=== PATIENT | female | born 1955 | race African-American/Black ===

== ENCOUNTER 2022-06-04 13:55 | Inpatient (IN) | payer MEDICARE, MEDICAID ==
[~2022-06-04] VITALS: Ht 165.1 cm; Wt 83.0 kg
[2022-06-04 14:56] LABS: HEMATOCRIT. 24.7 % (36.0-48.0); HEMOGLOBIN. 8.4 g/dL (12.0-16.0); MEAN CORPUSCULAR HEMOGLOBIN 29.1 pg (28.0-32.0); MEAN CORPUSCULAR VOLUME 85.9 fL (81.0-99.0); MEAN PLATELET VOLUME 9.8 fl (7.4-10.4); PLATELET 164 x1000/uL (130-400); RED BLOOD CELL COUNT 2.87 mill/uL (4.2-5.4); RED CELL DISTRIBUTION WIDTH 15.9 % (11.6-14.6)
[2022-06-04 15:16] LABS: CHLORIDE 95 mEq/L (98-107)
[2022-06-04] MEDS ORDERED: DEXTROSE 50% WATER 50ML SYRINGE IV ONE (17:30)
[2022-06-04 18:14] LABS: PLATELET ESTIMATE NORMAL
[2022-06-04 21:19] LABS: CLARITY URINE CLEAR (CLEAR); COLOR URINE YELLOW (YELLOW); KETONES URINE NEGATIVE (NEGATIVE); LEUKOCYTE ESTERASE URINE NEGATIVE (NEGATIVE); NITRITE URINE NEGATIVE (NEGATIVE); OCCULT BLOOD URINE NEGATIVE (NEGATIVE); PH URINE >=9.0 (4.5-8.0); PROTEIN URINE 3+ (NEGATIVE); SPECIFIC GRAVITY URINE 1.014 (1.005-1.030); UROBILINOGEN URINE 0.2 E.U./dL (0.2-1.0)
[2022-06-04] MEDS: DEXT 10% WATER 1,000 ML IV SCH (22:35)
[2022-06-04] MEDS: AMLODIPINE 5MG TABLET PO SCH (22:44)
[2022-06-05] VITALS (13 sets, daily range): BP systolic 147–186; BP diastolic 70–90
[2022-06-05] MEDS ORDERED: ACETAMINOPHEN 325MG TABLET PO PRN
[2022-06-05] MEDS ORDERED: ONDANSETRON HCL 4MG/2ML INJ IV PRN
[2022-06-05 05:49] LABS: BASOPHILS % 0.2 % (0.0-2.0); EOSINOPHILS % 0.6 % (0.0-5.0); HEMATOCRIT. 22.6 % (36.0-48.0); HEMOGLOBIN. 7.6 g/dL (12.0-16.0); LYMPHOCYTES % 9.9 % (20.0-50.0); MEAN CORPUSCULAR HEMOGLOBIN 28.9 pg (28.0-32.0); MEAN CORPUSCULAR VOLUME 85.5 fL (81.0-99.0); MEAN PLATELET VOLUME 9.7 fl (7.4-10.4); NEUTROPHILS % 81.3 % (40.0-76.0); PLATELET 148 x1000/uL (130-400); RED BLOOD CELL COUNT 2.64 mill/uL (4.2-5.4); RED CELL DISTRIBUTION WIDTH 15.5 % (11.6-14.6)
[2022-06-05] MEDS: DEXT 10% WATER 1,000 ML IV SCH ×2 (06:49→18:02)
[2022-06-05] MEDS: AMLODIPINE 5MG TABLET PO SCH (08:11)
[2022-06-05] MEDS ORDERED: ENOXAPARIN 40MG/0.4ML SYR SUBCUT SCH (11:30)
[2022-06-05] MEDS ORDERED: IPRATROPIUM/ALBUTEROL 0.5-3(2.5)MG/3ML NEB NEB PRN (11:30)
[2022-06-05] MEDS ORDERED: HYDROCODONE/ACETAMINOPHEN 5/325MG TABLET PO PRN (11:30)
[2022-06-05] MEDS ORDERED: CLONIDINE 0.1MG TABLET PO PRN (11:30)
[2022-06-05] MEDS ORDERED: NALOXONE HCL 0.4MG/ML VIAL IV PRN (11:45)
[2022-06-05] MEDS: ENOXAPARIN 30MG/0.3ML SYR SUBCUT SCH (12:12)
[2022-06-05 14:01] LABS: *AMPHETAMINES SCREEN URINE NEGATIVE (NEGATIVE); *BARBITURATES SCREEN URINE NEGATIVE (NEGATIVE); *BENZODIAZEPINES SCREEN URINE NEGATIVE (NEGATIVE); *COCAINE SCREEN URINE NEGATIVE (NEGATIVE); CANNABINOID URINE SCREEN NEGATIVE (NEGATIVE); METHADONE URINE SCREEN NEGATIVE (NEGATIVE); OPIATES URINE SCREEN NEGATIVE (NEGATIVE); PHENCYCLIDINE URINE SCREEN NEGATIVE (NEGATIVE)
[2022-06-05] MEDS ORDERED: DEXT 5%/0.9% NACL 1,000 ML IV SCH (16:00)
[2022-06-05 19:29] LABS: HEPATITIS B SURFACE ANTIGEN NEGATIVE
[2022-06-05] MEDS ORDERED: DEXTROSE 50% WATER 50ML SYRINGE IV PRN (19:30)
[2022-06-05] MEDS ORDERED: BLOOD SUGAR DIAGNOSTIC STRIP TEST SCH (20:00)
[2022-06-05] MEDS ORDERED: EPOETIN ALFA-EPBX 4,000 UNIT/ML VIAL SUBCUT SCH (21:00)
[2022-06-06] VITALS (7 sets, daily range): BP systolic 169–182; BP diastolic 68–87
[2022-06-06] MEDS: BLOOD SUGAR DIAGNOSTIC STRIP TEST SCH ×3 (04:00→08:00)
[2022-06-06 07:12] LABS: BASOPHILS % 0.5 % (0.0-2.0); EOSINOPHILS % 1.1 % (0.0-5.0); HEMATOCRIT. 22.9 % (36.0-48.0); HEMOGLOBIN. 7.8 g/dL (12.0-16.0); LYMPHOCYTES % 10.1 % (20.0-50.0); MEAN CORPUSCULAR HEMOGLOBIN 28.7 pg (28.0-32.0); MEAN CORPUSCULAR VOLUME 84.8 fL (81.0-99.0); MEAN PLATELET VOLUME 9.6 fl (7.4-10.4); MONOCYTES % 9.4 % (2.0-8.0); NEUTROPHILS % 78.9 % (40.0-76.0); PLATELET 160 x1000/uL (130-400); RED CELL DISTRIBUTION WIDTH 15.5 % (11.6-14.6)
[2022-06-06] MEDS: ENOXAPARIN 30MG/0.3ML SYR SUBCUT SCH (09:35)
[2022-06-06] MEDS: AMLODIPINE 5MG TABLET PO SCH (09:35)
[2022-06-18] MEDS ORDERED: GLUC3SPR NS (12:40)
== END 2022-06-06 11:50 | disposition home or self-care (01) | DRG 420 ==
LOC: ER 13:55 → MICUSO 17:28 → EDBEDREQTM 17:34 → EDBEDREQ 17:34 → EDBEDREQSVC 17:34 → 5EST 06-05 14:14
PROVIDERS: ADMIT Internal Medicine; ATTEND Internal Medicine
PROC: 5A1D70Z Performance of Urinary Filtration, Intermittent, Less than 6 Hours Per Day (ICD-10-PCS; principal; 2022-06-05)
DX: E11.649 Type 2 diabetes mellitus with hypoglycemia without coma (principal); I12.0 Hypertensive chronic kidney disease with stage 5 chronic kidney disease or end stage renal disease; C22.0 Liver cell carcinoma; E11.22 Type 2 diabetes mellitus with diabetic chronic kidney disease; N18.6 End stage renal disease; D64.9 Anemia, unspecified; E66.9 Obesity, unspecified; I25.10 Atherosclerotic heart disease of native coronary artery without angina pectoris; M19.90 Unspecified osteoarthritis, unspecified site; J45.909 Unspecified asthma, uncomplicated; Z96.659 Presence of unspecified artificial knee joint; Z68.30 Body mass index [BMI] 30.0-30.9, adult; Z85.05 Personal history of malignant neoplasm of liver; Z99.2 Dependence on renal dialysis
CPT/HCPCS: 36415; 80048; 80053; 80061; 80305; 81003; 82105; 82962; 85025; 86705; 86709; 86803; 87340; 90935; 99291; J0885; J1650

== ENCOUNTER 2022-06-16 19:56 | Inpatient (IN) | payer MEDICARE, MEDICAID ==
[~2022-06-16] VITALS: Ht 165.1 cm; Wt 81.7 kg
[2022-06-16] MEDS ORDERED: DEXTROSE 50% WATER 50ML SYRINGE IV ONE ×3 (20:07→22:42)
[2022-06-16] MEDS ORDERED: DEXTROSE 10% WATER 500 ML IV ONE (21:15)
[2022-06-16 21:32] LABS: HEMATOCRIT. 22.3 % (36.0-48.0); HEMOGLOBIN. 7.6 g/dL (12.0-16.0); MEAN CORPUSCULAR HEMOGLOBIN 28.8 pg (28.0-32.0); MEAN CORPUSCULAR VOLUME 84.2 fL (81.0-99.0); MEAN PLATELET VOLUME 8.5 fl (7.4-10.4); PLATELET 217 x1000/uL (130-400); RED BLOOD CELL COUNT 2.65 mill/uL (4.2-5.4); RED CELL DISTRIBUTION WIDTH 16.2 % (11.6-14.6)
[2022-06-16 21:41] LABS: CHLORIDE 95 mEq/L (98-107)
[2022-06-16] MEDS ORDERED: HYDRALAZINE 20MG/ML VIAL IV ONE (22:30)
[2022-06-16] MEDS ORDERED: METOCLOPRAMIDE HCL 10MG/2ML VIAL IV ONE (22:30)
[2022-06-16] MEDS ORDERED: MAGNESIUM/ALUMINUM HYDROXIDE/SIMETHICONE 30ML UDC PO PRN (23:45)
[2022-06-16] MEDS ORDERED: HYDROCODONE/ACETAMINOPHEN 5/325MG TABLET PO PRN (23:45)
[2022-06-16] MEDS ORDERED: DOCUSATE SODIUM 100MG CAPSULE PO PRN (23:45)
[2022-06-16] MEDS ORDERED: DIPHENHYDRAMINE 50MG/ML VIAL IV PRN (23:45)
[2022-06-16] MEDS ORDERED: IPRATROPIUM/ALBUTEROL 0.5-3(2.5)MG/3ML NEB HHN PRN (23:45)
[2022-06-16] MEDS ORDERED: ACETAMINOPHEN 325MG TABLET PO PRN ×2 (23:45)
[2022-06-16] MEDS ORDERED: CLONIDINE 0.1MG TABLET PO PRN (23:45)
[2022-06-16] MEDS ORDERED: GUAIFENESIN 200MG/10ML SUGAR FREE UDC PO PRN (23:45)
[2022-06-16] MEDS ORDERED: DEXTROSE 5% WATER 1,000 ML IV SCH (23:45)
[2022-06-16] MEDS ORDERED: ONDANSETRON HCL 4MG/2ML INJ IV PRN (23:45)
[2022-06-17] VITALS (20 sets, daily range): BP systolic 19–169; BP diastolic 54–81
[2022-06-17 00:06] LABS: PLATELET ESTIMATE NORMAL
[2022-06-17] MEDS ORDERED: DEXTROSE 50% WATER 50ML SYRINGE IV ONE (08:09)
[2022-06-17] MEDS: INSULIN LISPRO 100 UNITS/ML SUBCUT SCH ×4 (08:20→21:00)
[2022-06-17] MEDS ORDERED: DIPHENHYDRAMINE 50MG/ML VIAL IV PRN (08:45)
[2022-06-17] MEDS: PANTOPRAZOLE SODIUM 40 MG/VIAL IV SCH (09:00)
[2022-06-17] MEDS: FUROSEMIDE 40MG/4ML VIAL IVP SCH ×2 (09:15→17:00)
[2022-06-17] MEDS: BLOOD SUGAR DIAGNOSTIC STRIP TEST SCH ×4 (09:16→21:00)
[2022-06-17] MEDS: AMLODIPINE 5MG TABLET PO SCH (09:16)
[2022-06-17 11:22] LABS: HEMATOCRIT. 23.5 % (36.0-48.0); MEAN CORPUSCULAR HEMOGLOBIN 28.5 pg (28.0-32.0); MEAN CORPUSCULAR VOLUME 83.6 fL (81.0-99.0); MEAN PLATELET VOLUME 8.8 fl (7.4-10.4); PLATELET 215 x1000/uL (130-400); RED BLOOD CELL COUNT 2.81 mill/uL (4.2-5.4); RED CELL DISTRIBUTION WIDTH 16.1 % (11.6-14.6)
[2022-06-17] MEDS ORDERED: DEXT 10% WATER 1,000 ML IV SCH (13:45)
[2022-06-17 14:08] LABS: PLATELET ESTIMATE NORMAL
[2022-06-17 15:40] LABS: HEPATITIS B SURFACE ANTIGEN NEGATIVE
[2022-06-17] MEDS ORDERED: NALOXONE HCL 0.4MG/ML VIAL IV PRN (15:45)
[2022-06-17 16:13] LABS: CHLORIDE 93 mEq/L (98-107)
[2022-06-17 16:27] LABS: HDL CHOLESTEROL 73 mg/dL (40-59); LDL CHOLESTEROL 29 mg/dL (5-100); T4 FREE 1.56 ng/dL (0.76-1.46)
[2022-06-17] MEDS: DEXTROSE 50% WATER 50ML SYRINGE IV PRN ×2 (21:50→23:52)
[2022-06-18] VITALS (19 sets, daily range): BP systolic 137–168; BP diastolic 8–85
[2022-06-18] MEDS ORDERED: WATER IV SCH (01:30)
[2022-06-18] MEDS ORDERED: DEXT IV SCH (01:30)
[2022-06-18] MEDS ORDERED: DEXTROSE 50% IV SCH (01:30)
[2022-06-18] MEDS: BLOOD SUGAR DIAGNOSTIC STRIP TEST SCH ×6 (04:00→20:04)
[2022-06-18 07:10] LABS: BASOPHILS % 0.2 % (0.0-2.0); EOSINOPHILS % 1.1 % (0.0-5.0); HEMATOCRIT. 21.4 % (36.0-48.0); HEMOGLOBIN. 7.4 g/dL (12.0-16.0); LYMPHOCYTES % 9.8 % (20.0-50.0); MEAN CORPUSCULAR HEMOGLOBIN 28.6 pg (28.0-32.0); MEAN CORPUSCULAR VOLUME 82.6 fL (81.0-99.0); MEAN PLATELET VOLUME 9.5 fl (7.4-10.4); MONOCYTES % 10.3 % (2.0-8.0); NEUTROPHILS % 78.6 % (40.0-76.0); PLATELET 210 x1000/uL (130-400); RED BLOOD CELL COUNT 2.58 mill/uL (4.2-5.4); RED CELL DISTRIBUTION WIDTH 16.1 % (11.6-14.6)
[2022-06-18 07:55] LABS: CHLORIDE 91 mEq/L (98-107)
[2022-06-18] MEDS: PANTOPRAZOLE SODIUM 40 MG/VIAL IV SCH (08:34)
[2022-06-18] MEDS: AMLODIPINE 5MG TABLET PO SCH (08:34)
[2022-06-18] MEDS: FUROSEMIDE 40MG/4ML VIAL IVP SCH ×2 (08:34→17:34)
[2022-06-18] MEDS ORDERED: ISOS60TA76 PO (12:34)
[2022-06-18] MEDS ORDERED: ASPI-1406 PO (12:34)
[2022-06-18] MEDS ORDERED: AMLO10TA80 PO (12:34)
[2022-06-18] MEDS ORDERED: ATOR20TA65 PO (12:34)
[2022-06-18] MEDS ORDERED: MIRT45TA83 PO (12:34)
[2022-06-18] MEDS ORDERED: SEVE800T8 PO (12:34)
[2022-06-18] MEDS ORDERED: METO5TAB7 PO (12:34)
[2022-06-18] MEDS ORDERED: HYDR100T31 PO (12:34)
[2022-06-18] MEDS ORDERED: GLUC3SPR NS (12:40)
[2022-06-19 02:00] VITALS: BP 165/69
[2022-06-19 04:00] VITALS: BP 171/75
[2022-06-19] MEDS: BLOOD SUGAR DIAGNOSTIC STRIP TEST SCH ×3 (04:02→08:00)
[2022-06-19 05:37] VITALS: BP 154/62
[2022-06-19 07:00] LABS: BASOPHILS % 0.5 % (0.0-2.0); EOSINOPHILS % 2.5 % (0.0-5.0); HEMATOCRIT. 21.4 % (36.0-48.0); HEMOGLOBIN. 7.1 g/dL (12.0-16.0); LYMPHOCYTES % 10.4 % (20.0-50.0); MEAN CORPUSCULAR HEMOGLOBIN 27.8 pg (28.0-32.0); MEAN CORPUSCULAR VOLUME 83.4 fL (81.0-99.0); MEAN PLATELET VOLUME 9.2 fl (7.4-10.4); NEUTROPHILS % 75.6 % (40.0-76.0); PLATELET 219 x1000/uL (130-400); RED BLOOD CELL COUNT 2.56 mill/uL (4.2-5.4); RED CELL DISTRIBUTION WIDTH 15.5 % (11.6-14.6)
[2022-06-19 07:13] LABS: CHLORIDE 93 mEq/L (98-107)
[2022-06-19 08:00] VITALS: BP 152/68
[2022-06-19] MEDS ORDERED: FAMOTIDINE 20MG/2ML VIAL IV SCH (09:00)
[2022-06-19] MEDS: FUROSEMIDE 40MG/4ML VIAL IVP SCH (09:13)
[2022-06-19] MEDS: AMLODIPINE 5MG TABLET PO SCH (09:13)
[2022-06-19] MEDS ORDERED: GLUC3SPR NS (12:03)
[2022-06-19 12:43] VITALS: BP 152/62
[2022-06-19 13:06] LABS: C-PEPTIDE 9.2 ng/mL (1.1-4.4)
[2022-06-19] MEDS ORDERED: EPOETIN ALFA 10000UNITS/ML VIAL SUBCUT SCH (21:00)
[2022-06-20 13:07] LABS: C-PEPTIDE 5.1 ng/mL (1.1-4.4); INSULIN 3.5 uIU/mL (2.6-24.9)
[2022-06-21 13:06] LABS: PRO INSULIN 40.8 pmol/L (0.0-10.0)
[2022-06-21 13:06] LABS: PRO INSULIN 10.6 pmol/L (0.0-10.0)
== END 2022-06-19 13:05 | disposition home health service (06) | DRG 420 ==
LOC: ER 19:56 → MICUSO 22:32 → EDBEDREQ 22:33 → EDBEDREQSVC 22:35 → SUPCPDRO 22:54 → 5EST 06-17 03:13
PROVIDERS: ADMIT Internal Medicine; ATTEND Internal Medicine
PROC: 5A1D70Z Performance of Urinary Filtration, Intermittent, Less than 6 Hours Per Day (ICD-10-PCS; principal; 2022-06-17)
PROC: 5A1D70Z Performance of Urinary Filtration, Intermittent, Less than 6 Hours Per Day (ICD-10-PCS; 2022-06-18)
DX: E11.649 Type 2 diabetes mellitus with hypoglycemia without coma (principal); I50.33 Acute on chronic diastolic (congestive) heart failure; I31.39 Other pericardial effusion (noninflammatory); N18.6 End stage renal disease; E46 Unspecified protein-calorie malnutrition; D63.1 Anemia in chronic kidney disease; I13.2 Hypertensive heart and chronic kidney disease with heart failure and with stage 5 chronic kidney disease, or end stage renal disease; E11.22 Type 2 diabetes mellitus with diabetic chronic kidney disease; E11.65 Type 2 diabetes mellitus with hyperglycemia; Z20.822 Contact with and (suspected) exposure to COVID-19; E66.9 Obesity, unspecified; I25.10 Atherosclerotic heart disease of native coronary artery without angina pectoris; E78.5 Hyperlipidemia, unspecified; R74.01 Elevation of levels of liver transaminase levels; M10.9 Gout, unspecified; Z79.899 Other long term (current) drug therapy; Z68.30 Body mass index [BMI] 30.0-30.9, adult; Z79.4 Long term (current) use of insulin; Z99.2 Dependence on renal dialysis; Z87.891 Personal history of nicotine dependence; Z85.05 Personal history of malignant neoplasm of liver; Z81.1 Family history of alcohol abuse and dependence; Z92.21 Personal history of antineoplastic chemotherapy; Z92.3 Personal history of irradiation; Z63.72 Alcoholism and drug addiction in family; Z80.9 Family history of malignant neoplasm, unspecified; Z96.653 Presence of artificial knee joint, bilateral
CPT/HCPCS: 36415; 71045; 80048; 80053; 80061; 82105; 82533; 82947; 82962; 83036; 83525; 83880; 84206; 84439; 84443; 84481; 84681; 85025; 86337; 86705; 86709; 86803; 87340; 90935; 93005; 93306; 93970; 99285; C9113; J0360; J1940; J2765; J3490

== ENCOUNTER 2022-08-03 20:37 | Emergency (ER) | payer MEDICARE, MEDICAID ==
[~2022-08-03] VITALS: Ht 167.6 cm; Wt 69.0 kg
[~2022-08-03 20:37] MED LIST: AMLO10TA80 PO; ASPI-1406 PO; ATOR20TA65 PO; GLUC3SPR NS; HYDR-4001 PO; HYDR100T31 PO; ISOS60TA76 PO; METO5TAB7 PO; MIRT45TA83 PO; SEVE800T8 PO
[2022-08-03 22:47] LABS: BASOPHILS % 0.6 % (0.0-2.0); EOSINOPHILS % 4.5 % (0.0-5.0); HEMATOCRIT. 23.6 % (36.0-48.0); HEMOGLOBIN. 7.7 g/dL (12.0-16.0); LYMPHOCYTES % 14.4 % (20.0-50.0); MEAN CORPUSCULAR HEMOGLOBIN 26.5 pg (28.0-32.0); MEAN CORPUSCULAR VOLUME 80.9 fL (81.0-99.0); MEAN PLATELET VOLUME 8.5 fl (7.4-10.4); MONOCYTES % 12.6 % (2.0-8.0); NEUTROPHILS % 67.9 % (40.0-76.0); PLATELET 200 x1000/uL (130-400); RED BLOOD CELL COUNT 2.92 mill/uL (4.2-5.4)
[2022-08-03 22:55] LABS: CHLORIDE 100 mEq/L (98-107)
[2022-08-03 22:57] LABS: INR 1.1
[2022-08-03 23:41] LABS: CLARITY URINE CLEAR (CLEAR); COLOR URINE YELLOW (YELLOW); KETONES URINE NEGATIVE (NEGATIVE); LEUKOCYTE ESTERASE URINE NEGATIVE (NEGATIVE); NITRITE URINE NEGATIVE (NEGATIVE); OCCULT BLOOD URINE NEGATIVE (NEGATIVE); PROTEIN URINE 3+ (NEGATIVE); SPECIFIC GRAVITY URINE 1.015 (1.005-1.030); UROBILINOGEN URINE 0.2 E.U./dL (0.2-1.0)
[2022-08-04] MEDS ORDERED: PIPERACILLIN/TAZOBACTAM 3.375GM/50ML PREMIX IV NR (01:02)
[2022-08-04] MEDS ORDERED: VANCOMYCIN 1G PREMIX 200 ML IV STA (01:02)
[2022-08-04 06:00] VITALS: BP 149/73
== END 2022-08-04 06:12 | disposition left against medical advice (07) ==
LOC: ER 20:37 → CANBEDREQ 08-04 19:52
DX: E87.70 Fluid overload, unspecified (principal); J18.9 Pneumonia, unspecified organism; I12.0 Hypertensive chronic kidney disease with stage 5 chronic kidney disease or end stage renal disease; E11.22 Type 2 diabetes mellitus with diabetic chronic kidney disease; N18.6 End stage renal disease; Z99.2 Dependence on renal dialysis; F14.10 Cocaine abuse, uncomplicated; Z79.899 Other long term (current) drug therapy
CPT/HCPCS: 36415; 71045; 80053; 81003; 83880; 84484; 85025; 85610; 86850; 86900; 86901; 93005; 94660; 96365; 96366; 96375; 99291; J2543; J3370; Z7610

== ENCOUNTER 2022-08-07 14:43 | Inpatient (IN) | payer MEDICARE, MEDICAID ==
[~2022-08-07] VITALS: Ht 167.6 cm; Wt 69.9 kg
[2022-08-07 16:29] LABS: BASOPHILS % 0.6 % (0.0-2.0); EOSINOPHILS % 3.8 % (0.0-5.0); HEMATOCRIT. 27.1 % (36.0-48.0); HEMOGLOBIN. 8.8 g/dL (12.0-16.0); LYMPHOCYTES % 13.3 % (20.0-50.0); MEAN CORPUSCULAR HEMOGLOBIN 26.1 pg (28.0-32.0); MEAN CORPUSCULAR VOLUME 80.3 fL (81.0-99.0); MEAN PLATELET VOLUME 8.6 fl (7.4-10.4); MONOCYTES % 8.6 % (2.0-8.0); NEUTROPHILS % 73.7 % (40.0-76.0); PLATELET 260 x1000/uL (130-400); RED BLOOD CELL COUNT 3.37 mill/uL (4.2-5.4); RED CELL DISTRIBUTION WIDTH 18.1 % (11.6-14.6)
[2022-08-07 22:25] LABS: CHLORIDE 99 mEq/L (98-107)
[2022-08-08 04:35] VITALS: BP 170/80
[2022-08-08 08:09] VITALS: BP 162/71
[2022-08-08] MEDS ORDERED: ONDANSETRON HCL 4MG/2ML INJ IV PRN (09:30)
[2022-08-08] MEDS ORDERED: DIPHENHYDRAMINE 50MG/ML VIAL IV PRN (09:30)
[2022-08-08] MEDS ORDERED: IPRATROPIUM/ALBUTEROL 0.5-3(2.5)MG/3ML NEB HHN PRN (09:30)
[2022-08-08] MEDS ORDERED: ACETAMINOPHEN 325MG TABLET PO PRN ×2 (09:30→11:45)
[2022-08-08] MEDS: NICOTINE 7MG PATCH TD SCH (11:30)
[2022-08-08 12:16] VITALS: BP 167/67
[2022-08-08 13:47] LABS: HEPATITIS B SURFACE ANTIGEN NEGATIVE
[2022-08-08 15:52] VITALS: BP 171/69
[2022-08-08 17:10] LABS: INR 1.1; PROTHROMBIN TIME 11.7 sec (9.6-11.0)
[2022-08-08] MEDS ORDERED: NALOXONE HCL 0.4MG/ML VIAL IV PRN (17:15)
[2022-08-08] MEDS: MORPHINE SULFATE 2 MG/ML CPJ (NOT FOR IM USE) IV PRN (18:22)
[2022-08-08 20:00] VITALS: BP 159/61
[2022-08-08] MEDS: IPRATROPIUM/ALBUTEROL 0.5-3(2.5)MG/3ML NEB HHN SCH (20:26)
[2022-08-08] MEDS: SODIUM CHLORIDE 3% FOR INH 4ML UD NEB INH SCH (20:27)
[2022-08-08] MEDS ORDERED: CHLORHEXIDINE GLUCONATE 4% EXTERNAL USE TOP SCH (21:00)
[2022-08-08] MEDS ORDERED: DIPHENHYDRAMINE 25MG CAPSULE PO PRN (21:00)
[2022-08-08] MEDS ORDERED: BISACODYL 10MG SUPP PR PRN (21:00)
[2022-08-08] MEDS ORDERED: ASCORBIC ACID 500 MG TABLET PO SCH (21:00)
[2022-08-08] MEDS ORDERED: DOCUSATE SODIUM 100MG CAPSULE PO SCH (21:00)
[2022-08-08] MEDS ORDERED: IBUPROFEN 400MG TABLET PO PRN (21:45)
[2022-08-08] MEDS: ALLOPURINOL 300 MG TABLET PO SCH (21:53)
[2022-08-08] MEDS: CLONIDINE 0.1MG TABLET PO PRN (21:54)
[2022-08-09] VITALS (23 sets, daily range): BP systolic 124–169; BP diastolic 67–99
[2022-08-09] MEDS ORDERED: LR with VERAPAMIL, NTG, HEPARIN, SODIUM BICARBONATE (Soln) IV SCH ×10 (01:15→05:00)
[2022-08-09] MEDS: ACETYLCYSTEINE 100MG/ML 10% VIAL 4ML INH SCH ×3 (01:29→14:35)
[2022-08-09] MEDS: IPRATROPIUM/ALBUTEROL 0.5-3(2.5)MG/3ML NEB HHN SCH ×5 (01:29→21:36)
[2022-08-09] MEDS ORDERED: INSULIN REGULAR 100U/100ML PMX 100 ML IV NR (05:00)
[2022-08-09] MEDS ORDERED: PAPAVERINE HCL 180MG in SODIUM CHLORIDE 0.9% 24ML IV NR (05:00)
[2022-08-09] MEDS ORDERED: EPINEPHRINE 5 MG in DEXT 5% WATER 250 ML IV NR (05:00)
[2022-08-09] MEDS ORDERED: CEFAZOLIN 2,000 MG in DEXT 5% WATER 100 ML IV SCH (05:00)
[2022-08-09] MEDS ORDERED: NOREPINEPHRINE 8MG/250ML PMX 250 ML IV NR (05:00)
[2022-08-09] MEDS ORDERED: NICARDIPINE 40MG/200ML PREMIX 200 ML IV NR (05:00)
[2022-08-09] MEDS ORDERED: DOBUTAMINE 250MG PREMIX 250 ML IV NR (05:00)
[2022-08-09] MEDS ORDERED: [UNRECOGNIZED DRUG - OTHER] IV NR ×2 (05:00)
[2022-08-09] MEDS: ALLOPURINOL 300 MG TABLET PO SCH (05:43)
[2022-08-09 06:35] LABS: BASOPHILS % 0.8 % (0.0-2.0); EOSINOPHILS % 7.2 % (0.0-5.0); HEMATOCRIT. 24.2 % (36.0-48.0); LYMPHOCYTES % 18.8 % (20.0-50.0); MEAN CORPUSCULAR HEMOGLOBIN 26.6 pg (28.0-32.0); MEAN CORPUSCULAR VOLUME 80.6 fL (81.0-99.0); MEAN PLATELET VOLUME 8.7 fl (7.4-10.4); MONOCYTES % 9.8 % (2.0-8.0); NEUTROPHILS % 63.4 % (40.0-76.0); PLATELET 234 x1000/uL (130-400); RED CELL DISTRIBUTION WIDTH 17.7 % (11.6-14.6)
[2022-08-09] MEDS ORDERED: BUPIVACAINE HCL/PF 0.5% (5MG/ML) 10ML ONE (06:51)
[2022-08-09] MEDS ORDERED: POLYMYXIN B SULFATE 500000 UNITS/VIAL ONE (06:51)
[2022-08-09] MEDS ORDERED: BACITRACIN 15GM TUBE TOP ONE (06:52)
[2022-08-09 07:08] LABS: CHLORIDE 102 mEq/L (98-107)
[2022-08-09] MEDS ORDERED: FENTANYL CITRATE/PF 50MCG/ML 2ML VIAL ONE (07:56)
[2022-08-09] MEDS ORDERED: MIDAZOLAM HCL 2 MG/2 ML VIAL ONE (07:57)
[2022-08-09] MEDS ORDERED: VANCOMYCIN HCL 1 GM/VIAL ONE (07:59)
[2022-08-09] MEDS ORDERED: CEFAZOLIN SODIUM 1000MG/VIAL ONE (08:00)
[2022-08-09] MEDS ORDERED: PROPOFOL 200MG/20ML VIAL IV ONE (08:12)
[2022-08-09] MEDS: SODIUM CHLORIDE 3% FOR INH 4ML UD NEB INH SCH (08:25)
[2022-08-09] MEDS ORDERED: KETOROLAC 15MG/ML VIAL IV PRN (08:45)
[2022-08-09] MEDS ORDERED: ACETAMINOPHEN 325MG TABLET PO PRN (08:45)
[2022-08-09] MEDS ORDERED: ONDANSETRON HCL 4MG/2ML INJ IV PRN (08:45)
[2022-08-09] MEDS ORDERED: CEFAZOLIN 1000MG PREMIX 50 ML IV SCH ×2 (08:45→21:00)
[2022-08-09] MEDS ORDERED: ALBUMIN HUMAN 25GM/100ML (25%) IV PRN (08:45)
[2022-08-09] MEDS ORDERED: FAMOTIDINE 20MG/2ML VIAL IV SCH (09:00)
[2022-08-09] MEDS ORDERED: CHLORHEXIDINE GLUCONATE 4% EXTERNAL USE TOP SCH (09:00)
[2022-08-09 11:09] LABS: BG BASE EXCESS 4.4 mmol/L (-2.0-2.0); BG CARBOXYHEMOGLOBIN 0.6 % (0.5-1.5); BG DEOXYHEMOGLOBIN 9.9 % (0.0-5.0); BG FRACTION INSPIRED OXYGEN 28; BG HCO3 ACT 30.2 mmol/L (22.0-26.0); BG METHEMOGLOBIN 0.4 % (0.0-1.5); BG OXYHEMOGLOBIN 89.1 % (94.0-97.0); BG PCO2 51.1 mmHg (35.0-45.0); BG PH 7.389 (7.350-7.450); BG PO2 62.3 mmHg (75.0-100.0); BG SAMPLE SITE RIGHT BRACHIAL; BG TOTAL HEMOGLOBIN 9.8 g/dL (12.0-18.0); BG VENT MODE NASAL CANNULA
[2022-08-09] MEDS: MORPHINE SULFATE 2 MG/ML CPJ (NOT FOR IM USE) IV PRN ×2 (11:44→17:17)
[2022-08-09] MEDS: NICOTINE 7MG PATCH TD SCH (12:07)
[2022-08-09] MEDS: DOCUSATE SODIUM 100MG CAPSULE PO SCH (17:18)
[2022-08-09] MEDS: BACITRACIN 15GM TUBE TOP SCH (17:18)
[2022-08-09] MEDS: METOPROLOL TARTRATE 25MG TABLET PO SCH ×2 (17:18→21:07)
[2022-08-09] MEDS ORDERED: DOPAMINE 400MG/250ML PREMIX 250 ML IV NR (20:45)
[2022-08-10] VITALS (13 sets, daily range): BP systolic 125–155; BP diastolic 58–90
[2022-08-10] MEDS: ACETYLCYSTEINE 100MG/ML 10% VIAL 4ML INH SCH ×3 (01:40→17:17)
[2022-08-10] MEDS: IPRATROPIUM/ALBUTEROL 0.5-3(2.5)MG/3ML NEB HHN SCH ×6 (01:40→22:14)
[2022-08-10 07:48] LABS: PHOSPHORUS 5.4 mg/dL (2.5-4.9)
[2022-08-10 07:51] LABS: BASOPHILS % 0.9 % (0.0-2.0); EOSINOPHILS % 6.9 % (0.0-5.0); HEMATOCRIT. 25.8 % (36.0-48.0); HEMOGLOBIN. 8.5 g/dL (12.0-16.0); MEAN CORPUSCULAR HEMOGLOBIN 26.7 pg (28.0-32.0); MEAN CORPUSCULAR VOLUME 81.1 fL (81.0-99.0); MEAN PLATELET VOLUME 8.9 fl (7.4-10.4); MONOCYTES % 7.7 % (2.0-8.0); NEUTROPHILS % 71.5 % (40.0-76.0); PLATELET 286 x1000/uL (130-400); RED BLOOD CELL COUNT 3.18 mill/uL (4.2-5.4); RED CELL DISTRIBUTION WIDTH 17.8 % (11.6-14.6)
[2022-08-10] MEDS: SODIUM CHLORIDE 3% FOR INH 4ML UD NEB INH SCH ×2 (09:00→17:17)
[2022-08-10] MEDS ORDERED: FAMOTIDINE 20MG/2ML VIAL IV SCH (09:00)
[2022-08-10] MEDS: DOCUSATE SODIUM 100MG CAPSULE PO SCH ×2 (10:07→17:00)
[2022-08-10] MEDS: METOPROLOL TARTRATE 25MG TABLET PO SCH ×3 (10:07→18:27)
[2022-08-10] MEDS: NICOTINE 7MG PATCH TD SCH (10:07)
[2022-08-10] MEDS: FAMOTIDINE 20MG TABLET PO SCH (10:07)
[2022-08-10] MEDS: BACITRACIN 15GM TUBE TOP SCH ×2 (10:10→17:00)
[2022-08-10] MEDS: MORPHINE SULFATE 2 MG/ML CPJ (NOT FOR IM USE) IV PRN ×2 (13:23→23:42)
[2022-08-11] MEDS: IPRATROPIUM/ALBUTEROL 0.5-3(2.5)MG/3ML NEB HHN SCH ×5 (01:47→21:44)
[2022-08-11] MEDS: ACETYLCYSTEINE 100MG/ML 10% VIAL 4ML INH SCH ×3 (01:48→21:44)
[2022-08-11 05:34] LABS: BASOPHILS % 0.6 % (0.0-2.0); EOSINOPHILS % 9.8 % (0.0-5.0); HEMATOCRIT. 24.5 % (36.0-48.0); HEMOGLOBIN. 7.9 g/dL (12.0-16.0); LYMPHOCYTES % 16.1 % (20.0-50.0); MEAN CORPUSCULAR HEMOGLOBIN 26.4 pg (28.0-32.0); MEAN CORPUSCULAR VOLUME 81.4 fL (81.0-99.0); MEAN PLATELET VOLUME 9.4 fl (7.4-10.4); MONOCYTES % 6.3 % (2.0-8.0); NEUTROPHILS % 67.2 % (40.0-76.0); PLATELET 292 x1000/uL (130-400); RED BLOOD CELL COUNT 3.01 mill/uL (4.2-5.4); RED CELL DISTRIBUTION WIDTH 18.2 % (11.6-14.6)
[2022-08-11 05:57] VITALS: BP 159/71
[2022-08-11 06:09] LABS: PHOSPHORUS 5.8 mg/dL (2.5-4.9)
[2022-08-11 08:00] VITALS: BP 145/79
[2022-08-11] MEDS: DOCUSATE SODIUM 100MG CAPSULE PO SCH ×2 (09:00→17:00)
[2022-08-11] MEDS: NICOTINE 7MG PATCH TD SCH (09:26)
[2022-08-11] MEDS: MORPHINE SULFATE 2 MG/ML CPJ (NOT FOR IM USE) IV PRN (09:27)
[2022-08-11] MEDS: METOPROLOL TARTRATE 25MG TABLET PO SCH ×3 (09:27→17:09)
[2022-08-11] MEDS: BACITRACIN 15GM TUBE TOP SCH ×2 (09:30→17:09)
[2022-08-11] MEDS: SODIUM CHLORIDE 3% FOR INH 4ML UD NEB INH SCH (09:40)
[2022-08-11 12:00] VITALS: BP 157/79
[2022-08-11 16:00] VITALS: BP 166/83
[2022-08-11 20:00] VITALS: BP 169/74
[2022-08-11] MEDS: CLONIDINE 0.1MG TABLET PO PRN (20:47)
[2022-08-12] VITALS (10 sets, daily range): BP systolic 137–159; BP diastolic 63–104
[2022-08-12] MEDS: IPRATROPIUM/ALBUTEROL 0.5-3(2.5)MG/3ML NEB HHN SCH ×4 (01:36→12:00)
[2022-08-12 07:28] LABS: BASOPHILS % 0.5 % (0.0-2.0); EOSINOPHILS % 10.6 % (0.0-5.0); HEMOGLOBIN. 7.7 g/dL (12.0-16.0); LYMPHOCYTES % 14.5 % (20.0-50.0); MEAN CORPUSCULAR HEMOGLOBIN 26.9 pg (28.0-32.0); MEAN CORPUSCULAR VOLUME 80.8 fL (81.0-99.0); MEAN PLATELET VOLUME 9.2 fl (7.4-10.4); MONOCYTES % 5.9 % (2.0-8.0); NEUTROPHILS % 68.5 % (40.0-76.0); PLATELET 264 x1000/uL (130-400); RED BLOOD CELL COUNT 2.84 mill/uL (4.2-5.4); RED CELL DISTRIBUTION WIDTH 18.5 % (11.6-14.6)
[2022-08-12 07:53] LABS: PHOSPHORUS 6.6 mg/dL (2.5-4.9)
[2022-08-12] MEDS: FAMOTIDINE 20MG TABLET PO SCH (08:50)
[2022-08-12] MEDS: DOCUSATE SODIUM 100MG CAPSULE PO SCH (08:50)
[2022-08-12] MEDS: BACITRACIN 15GM TUBE TOP SCH (08:51)
[2022-08-12] MEDS: METOPROLOL TARTRATE 25MG TABLET PO SCH (08:51)
[2022-08-12] MEDS: NICOTINE 7MG PATCH TD SCH (08:51)
[2022-08-12] MEDS ORDERED: METO25TA6 PO (09:54)
[2022-08-12] MEDS ORDERED: AMLO5TAB88 MT (09:54)
[2022-08-12 11:25] LABS: BG BASE EXCESS 2.7 mmol/L (-2.0-2.0); BG DEOXYHEMOGLOBIN 12.9 % (0.0-5.0); BG FRACTION INSPIRED OXYGEN 21; BG HCO3 ACT 28.2 mmol/L (22.0-26.0); BG OXYGEN SATURATION 86.8 % (92.0-98.5); BG OXYHEMOGLOBIN 85.1 % (94.0-97.0); BG PCO2 47.8 mmHg (35.0-45.0); BG PH 7.388 (7.350-7.450); BG PO2 53.8 mmHg (75.0-100.0); BG SAMPLE SITE RIGHT RADIAL; BG VENT MODE ROOM AIR
[2022-08-12] MEDS ORDERED: EPOETIN ALFA-EPBX 4,000 UNIT/ML VIAL SUBCUT SCH (21:00)
[2022-08-14 04:12] LABS: ANA IFA Negative (.)
== END 2022-08-12 15:30 | disposition left against medical advice (07) | DRG 793 ==
LOC: ER 14:43 → MICUSO 23:02 → EDBEDREQ 23:13 → EDBEDREQTM 23:13 → 7WST 08-08 04:29 → MICUNO 08-09 10:32 → 3WST 08-09 16:05
PROVIDERS: ADMIT Internal Medicine; ATTEND Internal Medicine
PROC: 0W9B3ZZ Drainage of Left Pleural Cavity, Percutaneous Approach (ICD-10-PCS; 2022-08-08)
PROC: 0W9D00Z Drainage of Pericardial Cavity with Drainage Device, Open Approach (ICD-10-PCS; principal; 2022-08-09)
PROC: 5A1D70Z Performance of Urinary Filtration, Intermittent, Less than 6 Hours Per Day (ICD-10-PCS; 2022-08-09)
PROC: 5A1D70Z Performance of Urinary Filtration, Intermittent, Less than 6 Hours Per Day (ICD-10-PCS; 2022-08-12)
DX: I97.621 Postprocedural hematoma of a circulatory system organ or structure following other procedure (principal); J96.00 Acute respiratory failure, unspecified whether with hypoxia or hypercapnia; I31.39 Other pericardial effusion (noninflammatory); I13.2 Hypertensive heart and chronic kidney disease with heart failure and with stage 5 chronic kidney disease, or end stage renal disease; N18.6 End stage renal disease; E44.0 Moderate protein-calorie malnutrition; E87.1 Hypo-osmolality and hyponatremia; K75.9 Inflammatory liver disease, unspecified; I47.1 Supraventricular tachycardia; J90 Pleural effusion, not elsewhere classified; S20.212A Contusion of left front wall of thorax, initial encounter; E11.22 Type 2 diabetes mellitus with diabetic chronic kidney disease; D50.9 Iron deficiency anemia, unspecified; E78.5 Hyperlipidemia, unspecified; F10.21 Alcohol dependence, in remission; F14.90 Cocaine use, unspecified, uncomplicated; F17.210 Nicotine dependence, cigarettes, uncomplicated; G89.4 Chronic pain syndrome; Z96.653 Presence of artificial knee joint, bilateral; I50.9 Heart failure, unspecified; M10.9 Gout, unspecified; I35.8 Other nonrheumatic aortic valve disorders; D72.829 Elevated white blood cell count, unspecified; J98.11 Atelectasis; X58.XXXA Exposure to other specified factors, initial encounter; Z20.822 Contact with and (suspected) exposure to COVID-19; Z88.5 Allergy status to narcotic agent; Z99.2 Dependence on renal dialysis; Z85.05 Personal history of malignant neoplasm of liver; Z82.49 Family history of ischemic heart disease and other diseases of the circulatory system; Z79.82 Long term (current) use of aspirin; Z79.899 Other long term (current) drug therapy; Y93.89 Activity, other specified; Y92.89 Other specified places as the place of occurrence of the external cause; Y99.8 Other external cause status
CPT/HCPCS: 32555; 36415; 36600; 71045; 71250; 80048; 80053; 82040; 82375; 82805; 82962; 83615; 83735; 83880; 84100; 85025; 86256; 86705; 86709; 86803; 86850; 86900; 87070; 87075; 87102; 87116; 87340; 87426; 88108; 90935; 93005; 93308; 93970; 94640; 97162; 99285; J0690; J0885; J1644; J1815; J2250; J2270; J2405; J2440; J2704; J3010; J3370; J3490; J7060; J7120; J7608

== ENCOUNTER 2022-11-22 14:43 | Inpatient (IN) | payer MEDICARE, MEDICAID ==
[~2022-11-22] VITALS: Ht 167.6 cm; Wt 70.0 kg
[~2022-11-22 14:43] MED LIST changes: +AMLO5TAB88 MT; +METO25TA6 PO
[2022-11-22 14:46] VITALS: O2SAT 98
[2022-11-22 14:50] VITALS: RESP 32
[2022-11-22 15:28] LABS: CHLORIDE 99 mEq/L (98-107); INDEX HEMOLYSI 3 (1-3); INDEX ICTERIC 1 (1-4); INDEX LIPEMIC 1 (1-3); POTASSIUM 4.1 mEq/L (3.5-5.1); SODIUM 138 mEq/L (136-145)
[2022-11-22 15:31] LABS: BASOPHILS % 0.9 % (0.0-2.0); DIFFERENTIAL COMMENT 0; HEMATOCRIT. 34.9 % (36.0-48.0); HEMOGLOBIN. 11.5 g/dL (12.0-16.0); LYMPHOCYTES % 20.8 % (20.0-50.0); MEAN CORPUSCULAR HEMOGLOBIN 25.2 pg (28.0-32.0); MEAN CORPUSCULAR HGB CONC 33.1 g/dL (31.0-37.0); MEAN CORPUSCULAR VOLUME 76.3 fL (81.0-99.0); MEAN PLATELET VOLUME 10.3 fl (7.4-10.4); MONOCYTES % 9.8 % (2.0-8.0); NEUTROPHILS % 67.5 % (40.0-76.0); PLATELET 172 x1000/uL (130-400); RED BLOOD CELL COUNT 4.58 mill/uL (4.2-5.4); RED CELL DISTRIBUTION WIDTH 20.6 % (11.6-14.6); WHITE BLOOD COUNT 6.8 x1000/uL (4.5-11.0)
[2022-11-22 15:37] LABS: ALANINE AMINOTRANSFERASE 48 IU/L (13-61); ALBUMIN 3.2 g/dL (3.4-5.0); ASPARTATE AMINOTRANSFERASE 52 IU/L (15-37); BILIRUBIN TOTAL 0.6 mg/dL (0.1-1.0); CALCIUM 8.9 mg/dL (8.5-10.1); CARBON DIOXIDE 31 mEq/L (21-32); GLUCOSE 122 mg/dL (70-105); PROTEIN TOTAL 7.4 g/dL (6.0-8.3); UREA NITROGEN BLOOD 22 mg/dL (7-21)
[2022-11-22 16:17] LABS: CREATININE 5.6 mg/dL (0.6-1.3); TROPONIN I HIGH SENSITIVITY 1137 ng/L (<54)
[2022-11-22 16:29] LABS: INR 1.2; PROTHROMBIN TIME 12.4 sec (9.6-11.0)
[2022-11-22] MEDS ORDERED: ASPIRIN 325MG TABLET PO ONE (16:45)
[2022-11-22 17:38] LABS: TROPONIN I HIGH SENSITIVITY 1363 ng/L (<54)
[2022-11-23] MEDS ORDERED: CLONIDINE 0.1MG TABLET PO PRN (03:45)
[2022-11-23] MEDS ORDERED: ONDANSETRON HCL 4MG/2ML INJ IV PRN (03:45)
[2022-11-23] MEDS ORDERED: IPRATROPIUM/ALBUTEROL 0.5-3(2.5)MG/3ML NEB HHN PRN (03:45)
[2022-11-23] MEDS ORDERED: DEXTROSE 50% WATER 50ML SYRINGE IV PRN (03:45)
[2022-11-23] MEDS ORDERED: NALOXONE HCL 0.4MG/ML VIAL IV PRN (04:45)
[2022-11-23] MEDS: BLOOD SUGAR DIAGNOSTIC STRIP TEST SCH ×4 (06:35→21:00)
[2022-11-23] MEDS: INSULIN LISPRO 100 UNITS/ML SUBCUT SCH ×4 (06:36→21:00)
[2022-11-23 08:00] VITALS: PULSE 95; RESP 22; TEMP 99
[2022-11-23 08:15] LABS: BASOPHILS % 0.7 % (0.0-2.0); DIFFERENTIAL COMMENT 0; EOSINOPHILS % 1.9 % (0.0-5.0); HEMATOCRIT. 31.7 % (36.0-48.0); HEMOGLOBIN. 10.6 g/dL (12.0-16.0); LYMPHOCYTES % 16.2 % (20.0-50.0); MEAN CORPUSCULAR HEMOGLOBIN 25.5 pg (28.0-32.0); MEAN CORPUSCULAR HGB CONC 33.4 g/dL (31.0-37.0); MEAN CORPUSCULAR VOLUME 76.4 fL (81.0-99.0); MEAN PLATELET VOLUME 10.9 fl (7.4-10.4); MONOCYTES % 9.6 % (2.0-8.0); NEUTROPHILS % 71.6 % (40.0-76.0); PLATELET 129 x1000/uL (130-400); RED BLOOD CELL COUNT 4.16 mill/uL (4.2-5.4); RED CELL DISTRIBUTION WIDTH 20.1 % (11.6-14.6); WHITE BLOOD COUNT 6.5 x1000/uL (4.5-11.0)
[2022-11-23 08:30] LABS: POTASSIUM 3.7 mEq/L (3.5-5.1)
[2022-11-23 08:37] LABS: CALCIUM 8.6 mg/dL (8.5-10.1)
[2022-11-23 08:54] LABS: CREATININE 6.9 mg/dL (0.6-1.3)
[2022-11-23] MEDS ORDERED: INFLUENZA VACCINE 05/PF 0.5 ML SYRINGE IM ONE (09:00)
[2022-11-23] MEDS ORDERED: PNEUMOCOCCAL 23-VAL P-SAC VAC 0.5 ML IM ONE (09:00)
[2022-11-23] MEDS: AMLODIPINE 5MG TABLET PO SCH ×2 (10:32→21:45)
[2022-11-23 12:00] VITALS: BP 125/80; PULSE 93; RESP 18; TEMP 98
[2022-11-23] MEDS: CARVEDILOL 6.25 MG TABLET PO SCH ×2 (12:15→21:40)
[2022-11-23 12:25] LABS: INDEX HEMOLYSI 1 (1-3); INDEX ICTERIC 1 (1-4); INDEX LIPEMIC 1 (1-3)
[2022-11-23 12:30] LABS: IRON 39 ug/dL (50-175); TOTAL IRON BINDING CAPACITY 240 ug/dL (250-450)
[2022-11-23 12:50] LABS: FOLIC ACID (FOLATE) SERUM 15.7 ng/mL (>5.38)
[2022-11-23 15:43] VITALS: BP 125/80; PULSE 93; RESP 18; TEMP 98
[2022-11-23 16:00] VITALS: BP 130/70; PULSE 86; RESP 22; TEMP 97
[2022-11-23] MEDS: HYDROCODONE/ACETAMINOPHEN 5/325MG TABLET PO PRN ×2 (18:42→23:27)
[2022-11-23 20:00] VITALS: BP 149/66; PULSE 87; RESP 14; TEMP 98
[2022-11-24] VITALS: BP 148/71; PULSE 75; RESP 15; TEMP 98.2
[2022-11-24 04:00] VITALS: BP 142/72; PULSE 70; RESP 9; TEMP 98
[2022-11-24] MEDS: BLOOD SUGAR DIAGNOSTIC STRIP TEST SCH ×2 (06:10→11:41)
[2022-11-24] MEDS: INSULIN LISPRO 100 UNITS/ML SUBCUT SCH ×2 (07:20→11:41)
[2022-11-24 07:57] LABS: BASOPHILS % 0.6 % (0.0-2.0); DIFFERENTIAL COMMENT 0; EOSINOPHILS % 4.8 % (0.0-5.0); HEMATOCRIT. 30.9 % (36.0-48.0); HEMOGLOBIN. 10.1 g/dL (12.0-16.0); LYMPHOCYTES % 27.4 % (20.0-50.0); MEAN CORPUSCULAR HEMOGLOBIN 24.7 pg (28.0-32.0); MEAN CORPUSCULAR HGB CONC 32.7 g/dL (31.0-37.0); MEAN CORPUSCULAR VOLUME 75.7 fL (81.0-99.0); MONOCYTES % 8.9 % (2.0-8.0); NEUTROPHILS % 58.3 % (40.0-76.0); PLATELET 124 x1000/uL (130-400); RED BLOOD CELL COUNT 4.08 mill/uL (4.2-5.4); RED CELL DISTRIBUTION WIDTH 20.4 % (11.6-14.6); WHITE BLOOD COUNT 4.6 x1000/uL (4.5-11.0)
[2022-11-24 08:00] VITALS: BP 149/71; PULSE 85; RESP 18; TEMP 98.8
[2022-11-24 08:09] LABS: CHLORIDE 95 mEq/L (98-107); INDEX HEMOLYSI 1 (1-3); INDEX ICTERIC 1 (1-4); INDEX LIPEMIC 1 (1-3); SODIUM 135 mEq/L (136-145)
[2022-11-24 08:18] LABS: ALANINE AMINOTRANSFERASE 38 IU/L (13-61); ALBUMIN 2.9 g/dL (3.4-5.0); ASPARTATE AMINOTRANSFERASE 39 IU/L (15-37); BILIRUBIN TOTAL 0.7 mg/dL (0.1-1.0); CALCIUM 8.8 mg/dL (8.5-10.1); CARBON DIOXIDE 30 mEq/L (21-32); GLUCOSE 81 mg/dL (70-105); PROTEIN TOTAL 6.6 g/dL (6.0-8.3); UREA NITROGEN BLOOD 44 mg/dL (7-21)
[2022-11-24 08:22] LABS: CREATININE 8.6 mg/dL (0.6-1.3)
[2022-11-24] MEDS: AMLODIPINE 5MG TABLET PO SCH ×2 (08:47→20:11)
[2022-11-24] MEDS: CARVEDILOL 6.25 MG TABLET PO SCH ×2 (08:48→20:11)
[2022-11-24] MEDS: HYDROCODONE/ACETAMINOPHEN 5/325MG TABLET PO PRN ×2 (08:56→19:12)
[2022-11-24 12:00] VITALS: BP 138/61; PULSE 70; RESP 13; TEMP 97.8
[2022-11-24 16:00] VITALS: BP 141/63; PULSE 87; RESP 15; TEMP 97.7
[2022-11-24 20:00] VITALS: BP 141/63; PULSE 82; RESP 14; TEMP 99.3
[2022-11-25] VITALS (12 sets, daily range): BP systolic 133–149; BP diastolic 58–77; PULSE 68–85; RESP 13–20; TEMP 98–98.8
[2022-11-25 07:29] LABS: BASOPHILS % 0.5 % (0.0-2.0); DIFFERENTIAL COMMENT 0; EOSINOPHILS % 4.2 % (0.0-5.0); HEMATOCRIT. 29.9 % (36.0-48.0); HEMOGLOBIN. 9.8 g/dL (12.0-16.0); LYMPHOCYTES % 14.3 % (20.0-50.0); MEAN CORPUSCULAR HGB CONC 32.9 g/dL (31.0-37.0); MEAN PLATELET VOLUME 10.5 fl (7.4-10.4); MONOCYTES % 10.4 % (2.0-8.0); NEUTROPHILS % 70.6 % (40.0-76.0); PLATELET 155 x1000/uL (130-400); RED BLOOD CELL COUNT 3.93 mill/uL (4.2-5.4); RED CELL DISTRIBUTION WIDTH 20.4 % (11.6-14.6)
[2022-11-25 07:49] LABS: CHLORIDE 97 mEq/L (98-107); INDEX HEMOLYSI 3 (1-3); INDEX ICTERIC 1 (1-4); INDEX LIPEMIC 1 (1-3); POTASSIUM 4.6 mEq/L (3.5-5.1); SODIUM 133 mEq/L (136-145)
[2022-11-25 07:57] LABS: ALANINE AMINOTRANSFERASE 38 IU/L (13-61); ASPARTATE AMINOTRANSFERASE 43 IU/L (15-37); BILIRUBIN TOTAL 0.8 mg/dL (0.1-1.0); CALCIUM 8.5 mg/dL (8.5-10.1); CARBON DIOXIDE 28 mEq/L (21-32); GLUCOSE 81 mg/dL (70-105); PROTEIN TOTAL 6.9 g/dL (6.0-8.3); UREA NITROGEN BLOOD 54 mg/dL (7-21)
[2022-11-25 08:10] LABS: CREATININE 9.3 mg/dL (0.6-1.3)
[2022-11-25] MEDS: AMLODIPINE 5MG TABLET PO SCH ×2 (08:54→21:49)
[2022-11-25] MEDS: CARVEDILOL 6.25 MG TABLET PO SCH ×2 (08:54→21:49)
[2022-11-25] MEDS: HYDROCODONE/ACETAMINOPHEN 5/325MG TABLET PO PRN ×2 (11:00→22:20)
[2022-11-26 00:16] VITALS: BP 138/65; PULSE 78; RESP 14; TEMP 98.2
[2022-11-26 04:02] VITALS: BP 148/68; TEMP 98.5
== END 2022-11-26 08:30 | disposition left against medical advice (07) | DRG 194 ==
LOC: ER 15:23 → 3WST 17:17 → EDBEDREQSVC 17:21 → EDBEDREQTM 17:21 → EDBEDREQ 17:21
PROVIDERS: ADMIT Internal Medicine; ATTEND Internal Medicine
PROC: 5A09357 Assistance with Respiratory Ventilation, Less than 24 Consecutive Hours, Continuous Positive Airway Pressure (ICD-10-PCS; principal; 2022-11-22)
PROC: 5A09357 Assistance with Respiratory Ventilation, Less than 24 Consecutive Hours, Continuous Positive Airway Pressure (ICD-10-PCS; 2022-11-25)
PROC: 5A1D70Z Performance of Urinary Filtration, Intermittent, Less than 6 Hours Per Day (ICD-10-PCS; 2022-11-25)
DX: I13.2 Hypertensive heart and chronic kidney disease with heart failure and with stage 5 chronic kidney disease, or end stage renal disease (principal); J96.01 Acute respiratory failure with hypoxia; I21.A1 Myocardial infarction type 2; N18.6 End stage renal disease; D69.6 Thrombocytopenia, unspecified; E11.22 Type 2 diabetes mellitus with diabetic chronic kidney disease; D50.9 Iron deficiency anemia, unspecified; I50.33 Acute on chronic diastolic (congestive) heart failure; Z53.29 Procedure and treatment not carried out because of patient's decision for other reasons; I16.0 Hypertensive urgency; R74.01 Elevation of levels of liver transaminase levels; Z79.899 Other long term (current) drug therapy; Z99.2 Dependence on renal dialysis; Z79.82 Long term (current) use of aspirin; Z85.05 Personal history of malignant neoplasm of liver
CPT/HCPCS: 36415; 71045; 80048; 80053; 82607; 82728; 82746; 82962; 83036; 83540; 83550; 84145; 84484; 85025; 87340; 90935; 93005; 93306; 94660; 99291

== ENCOUNTER 2023-04-17 15:38 | Emergency (ER) | payer MEDICARE, MEDICAID ==
[~2023-04-17] VITALS: Ht 160 cm; Wt 58.0 kg
[~2023-04-17 15:38] MED LIST changes: +AZIT500T8 MT
[2023-04-17 15:49] VITALS: BP 171/78
[2023-04-17 17:16] VITALS: PULSE 90; RESP 20; O2SAT 100
[2023-04-17] MEDS: IPRATROPIUM BROMIDE (0.02%) 0.5MG/2.5ML NEB HHN STA (17:16)
[2023-04-17] MEDS: ALBUTEROL (0.083%) 2.5MG/3ML NEB HHN STA (17:16)
[2023-04-17 18:10] VITALS: PULSE 106; RESP 16
[2023-04-17] MEDS: METHYLPREDNISOLONE SOD SUCC 125MG/2ML (ACT-O-VIAL) IV STA (18:13)
[2023-04-17] MEDS: PREDNISONE 20MG TABLET PO ONE (18:13)
== END 2023-04-17 18:30 | disposition left against medical advice (07) ==
LOC: ER 15:38 → 8WST 04-18 00:12 → UNDOADMIN 04-18 00:12
DX: J44.1 Chronic obstructive pulmonary disease with (acute) exacerbation (principal); I10 Essential (primary) hypertension; Z85.9 Personal history of malignant neoplasm, unspecified; Z79.899 Other long term (current) drug therapy
CPT/HCPCS: 71045; 94640; 93005; 99285; J7512; Z7610

== ENCOUNTER 2023-04-27 13:48 | Emergency (ER) | payer MEDICARE, MEDICAID ==
[~2023-04-27] VITALS: Ht 160 cm; Wt 65.0 kg
[2023-04-27 14:05] VITALS: O2SAT 94
[2023-04-27 14:11] VITALS: RESP 30
[2023-04-27] MEDS: IPRATROPIUM BROMIDE (0.02%) 0.5MG/2.5ML NEB HHN STA (14:20)
[2023-04-27] MEDS: ALBUTEROL (0.083%) 2.5MG/3ML NEB HHN SCH (14:53)
[2023-04-27 14:55] LABS: BG BASE EXCESS 2.7 mmol/L (-2.0-2.0); BG CARBOXYHEMOGLOBIN 0.6 % (0.5-1.5); BG DEOXYHEMOGLOBIN 0.3 % (0.0-5.0); BG FRACTION INSPIRED OXYGEN 100; BG HCO3 ACT 27.7 mmol/L (22.0-26.0); BG METHEMOGLOBIN 0.7 % (0.0-1.5); BG OXYGEN SATURATION 99.7 % (92.0-98.5); BG OXYHEMOGLOBIN 98.4 % (94.0-97.0); BG PCO2 44.5 mmHg (35.0-45.0); BG PH 7.412 (7.350-7.450); BG PO2 525.3 mmHg (75.0-100.0); BG SAMPLE SITE RIGHT RADIAL; BG TOTAL HEMOGLOBIN 9.2 g/dL (12.0-18.0); BG VENT MODE MASK - BIPAP
[2023-04-27] MEDS: CEFTRIAXONE 1GM/50ML 50 ML IV ONE (14:57)
[2023-04-27] MEDS: METHYLPREDNISOLONE SOD SUCC 125MG/2ML (ACT-O-VIAL) IV STA (14:57)
[2023-04-27 14:59] LABS: BASOPHILS % 0.6 % (0.0-2.0); EOSINOPHILS % 0.1 % (0.0-5.0); HEMATOCRIT. 25.6 % (36.0-48.0); HEMOGLOBIN. 8.3 g/dL (12.0-16.0); LYMPHOCYTES % 23.3 % (20.0-50.0); MEAN CORPUSCULAR HEMOGLOBIN 28.9 pg (28.0-32.0); MEAN CORPUSCULAR HGB CONC 32.4 g/dL (31.0-37.0); MEAN CORPUSCULAR VOLUME 89.2 fL (81.0-99.0); MEAN PLATELET VOLUME 10.2 fl (7.4-10.4); MONOCYTES % 11.4 % (2.0-8.0); NEUTROPHILS % 64.6 % (40.0-76.0); PLATELET 146 x1000/uL (130-400); RED BLOOD CELL COUNT 2.87 mill/uL (4.2-5.4); RED CELL DISTRIBUTION WIDTH 20.7 % (11.6-14.6); WHITE BLOOD COUNT 6.4 x1000/uL (4.5-11.0)
[2023-04-27] MEDS: MAGNESIUM 2 G PREMIX 50 ML IV ONE (15:00)
[2023-04-27 15:12] LABS: PARTIAL THROMBOPLASTIN TIME 24.9 sec (23.4-31.0); PROTHROMBIN TIME 11.4 sec (9.6-11.0)
[2023-04-27 15:15] LABS: ALANINE AMINOTRANSFERASE 44 IU/L (10-49); ALBUMIN 4.1 g/dL (3.2-4.8); ASPARTATE AMINOTRANSFERASE 40 IU/L (<34); BILIRUBIN TOTAL 0.4 mg/dL (0.1-1.0); CALCIUM 8.9 mg/dL (8.7-10.4); CARBON DIOXIDE 28 mEq/L (21-32); CHLORIDE 94 mEq/L (98-107); GLUCOSE 129 mg/dL (70-105); POTASSIUM 4.4 mEq/L (3.5-5.1); PROTEIN TOTAL 6.8 g/dL (6.0-8.3); SODIUM 135 mEq/L (136-145); UREA NITROGEN BLOOD 64 mg/dL (9-23)
[2023-04-27 15:40] LABS: CREATININE 10.3 mg/dL (0.6-1.0); TROPONIN I HIGH SENSITIVITY 156 ng/L (3.0-34)
[2023-04-27] MEDS: AZITHROMYCIN 500MG/250ML 250 ML IV SCH (15:56)
[2023-04-27 16:00] VITALS: BP 129/85; PULSE 84; RESP 26
[2023-04-30] MEDS ORDERED: LIP40 PO (12:40)
[2023-05-02] MEDS ORDERED: ATOR20TA65 PO (10:15)
[2023-05-02] MEDS ORDERED: LACT-36 PO (10:15)
[2023-05-02] MEDS ORDERED: LORA10TA7 PO (10:15)
[2023-05-02] MEDS ORDERED: SEVE800T8 MT (10:15)
[2023-05-02] MEDS ORDERED: PRED10TA23 PO (10:15)
[2023-05-02] MEDS ORDERED: GABA-532 PO (10:15)
[2023-05-02] MEDS ORDERED: AMLO10TA80 MT (10:15)
[2023-05-02] MEDS ORDERED: ALBU18HF2 IH (10:15)
[2023-05-02] MEDS ORDERED: TRAZ-251 PO (10:15)
[2023-05-02] MEDS ORDERED: ISOS60TA76 PO (10:15)
== END 2023-04-27 17:01 | disposition left against medical advice (07) ==
LOC: ER 13:48 → EDBEDREQ 14:12 → ER 17:01
DX: R06.02 Shortness of breath (principal); J44.9 Chronic obstructive pulmonary disease, unspecified; I10 Essential (primary) hypertension; Z79.899 Other long term (current) drug therapy
CPT/HCPCS: 80053; 83880; 85025; 85610; 85730; 84484; 36415; 71045; 94640; 82805; 82375; 94660; 96368; 96365; 96366; 96375; 99284; 36600; J0456; J0696; J3475; J2930; Z7610 ×2; 94644

== ENCOUNTER 2023-05-09 12:20 | Emergency (ER) | payer MEDICARE, MEDICAID ==
[~2023-05-09] VITALS: Ht 167.6 cm; Wt 62.0 kg
[~2023-05-09 12:20] MED LIST changes: +ALBU18HF2 IH; +AMLO10TA80 MT; -AMLO5TAB88 MT; +GABA-532 PO; +LACT-36 PO; +LIP40 PO; +LORA10TA7 PO; +PRED10TA23 PO; +SEVE800T8 MT; +TRAZ-251 PO
[2023-05-09 12:28] VITALS: O2SAT 92
[2023-05-09 13:20] LABS: BASOPHILS % 0.7 % (0.0-2.0); DIFFERENTIAL COMMENT 0; EOSINOPHILS % 0.6 % (0.0-5.0); LYMPHOCYTES % 10.9 % (20.0-50.0); MEAN CORPUSCULAR HEMOGLOBIN 29.7 pg (28.0-32.0); MEAN CORPUSCULAR HGB CONC 33.3 g/dL (31.0-37.0); MEAN CORPUSCULAR VOLUME 88.9 fL (81.0-99.0); MEAN PLATELET VOLUME 10.4 fl (7.4-10.4); MONOCYTES % 11.1 % (2.0-8.0); NEUTROPHILS % 76.7 % (40.0-76.0); PLATELET 152 x1000/uL (130-400); RED BLOOD CELL COUNT 2.23 mill/uL (4.2-5.4); RED CELL DISTRIBUTION WIDTH 21.2 % (11.6-14.6); WHITE BLOOD COUNT 6.6 x1000/uL (4.5-11.0)
[2023-05-09 13:38] LABS: HEMOGLOBIN. 6.6 g/dL (12.0-16.0)
[2023-05-09 13:39] LABS: HEMATOCRIT. 19.9 % (36.0-48.0)
[2023-05-09 13:53] LABS: ALANINE AMINOTRANSFERASE 56 IU/L (10-49); ALBUMIN 3.7 g/dL (3.2-4.8); ASPARTATE AMINOTRANSFERASE 52 IU/L (<34); BILIRUBIN TOTAL 0.4 mg/dL (0.1-1.0); CARBON DIOXIDE 31 mEq/L (21-32); CHLORIDE 94 mEq/L (98-107); GLUCOSE 126 mg/dL (70-105); POTASSIUM 3.5 mEq/L (3.5-5.1); PROTEIN TOTAL 6.1 g/dL (6.0-8.3); SODIUM 136 mEq/L (136-145); UREA NITROGEN BLOOD 63 mg/dL (9-23)
[2023-05-09 14:13] LABS: CREATININE 7.6 mg/dL (0.6-1.0)
[2023-05-09 16:45] VITALS: BP 122/54; PULSE 85; RESP 18; TEMP 98.4
== END 2023-05-09 17:09 | disposition left against medical advice (07) ==
LOC: ER 12:20 → CANBEDREQ 05-10 00:26
DX: D64.9 Anemia, unspecified (principal); F17.200 Nicotine dependence, unspecified, uncomplicated; J44.1 Chronic obstructive pulmonary disease with (acute) exacerbation; I10 Essential (primary) hypertension; I12.0 Hypertensive chronic kidney disease with stage 5 chronic kidney disease or end stage renal disease; E11.22 Type 2 diabetes mellitus with diabetic chronic kidney disease; N18.6 End stage renal disease; Z79.82 Long term (current) use of aspirin; Z88.5 Allergy status to narcotic agent; Z79.899 Other long term (current) drug therapy; Z86.39 Personal history of other endocrine, nutritional and metabolic disease; Z90.49 Acquired absence of other specified parts of digestive tract
CPT/HCPCS: 36415; 36430; 80053; 85025; 86850; 86900; 86920; 93005; 99291; P9016

== ENCOUNTER 2023-05-26 04:07 | Emergency (ER) | payer MEDICARE, MEDICAID ==
[~2023-05-26] VITALS: Ht 170.2 cm; Wt 69.0 kg
[2023-05-26 04:09] VITALS: O2SAT 100
[2023-05-26 04:10] VITALS: RESP 38
[2023-05-26 04:25] LABS: BASOPHILS % 0.9 % (0.0-2.0); EOSINOPHILS % 2.2 % (0.0-5.0); HEMATOCRIT. 26.8 % (36.0-48.0); HEMOGLOBIN. 8.7 g/dL (12.0-16.0); LYMPHOCYTES % 42.1 % (20.0-50.0); MEAN CORPUSCULAR HEMOGLOBIN 30.6 pg (28.0-32.0); MEAN CORPUSCULAR HGB CONC 32.3 g/dL (31.0-37.0); MEAN CORPUSCULAR VOLUME 94.8 fL (81.0-99.0); MEAN PLATELET VOLUME 10.4 fl (7.4-10.4); MONOCYTES % 9.6 % (2.0-8.0); NEUTROPHILS % 45.2 % (40.0-76.0); PLATELET 182 x1000/uL (130-400); RED BLOOD CELL COUNT 2.83 mill/uL (4.2-5.4); RED CELL DISTRIBUTION WIDTH 18.9 % (11.6-14.6); WHITE BLOOD COUNT 9.3 x1000/uL (4.5-11.0)
[2023-05-26 04:39] LABS: LACTIC ACID 2.3 mmol/L (0.4-2.0)
[2023-05-26 04:41] LABS: ALANINE AMINOTRANSFERASE 38 IU/L (10-49); ASPARTATE AMINOTRANSFERASE 44 IU/L (<34); BILIRUBIN TOTAL 0.3 mg/dL (0.1-1.0); CALCIUM 9.1 mg/dL (8.7-10.4); CARBON DIOXIDE 26 mEq/L (21-32); CHLORIDE 99 mEq/L (98-107); GLUCOSE 134 mg/dL (70-105); POTASSIUM 3.9 mEq/L (3.5-5.1); PROTEIN TOTAL 6.8 g/dL (6.0-8.3); SODIUM 136 mEq/L (136-145); UREA NITROGEN BLOOD 60 mg/dL (9-23)
[2023-05-26] MEDS: LABETALOL HCL VIAL 20 MG/4 ML VIAL IV ONE (04:46)
[2023-05-26] MEDS: LABETALOL 5MG/ML SYR 20 MG/4 ML SYRINGE IV NR (04:47)
[2023-05-26 04:55] LABS: CREATININE 9.6 mg/dL (0.6-1.0); TROPONIN I HIGH SENSITIVITY 99 ng/L (3.0-34)
[2023-05-26 06:29] VITALS: BP 119/55; PULSE 75; RESP 21
[2023-05-26 07:31] LABS: TROPONIN I HIGH SENSITIVITY 82 ng/L (3.0-34)
== END 2023-05-26 07:53 | disposition left against medical advice (07) ==
LOC: ER 04:07 → CANBEDREQ 09:53
DX: J96.91 Respiratory failure, unspecified with hypoxia (principal); N19 Unspecified kidney failure; I10 Essential (primary) hypertension; J44.9 Chronic obstructive pulmonary disease, unspecified; Z79.899 Other long term (current) drug therapy
CPT/HCPCS: 80053; 83605; 85025; 84484; 36415; 71045; 94660; 96374; 99291; J3490; Z7610

== ENCOUNTER 2023-09-15 08:36 | Emergency (ER) | payer MEDICARE, MEDICAID ==
[~2023-09-15] VITALS: Ht 162.6 cm; Wt 75.0 kg
[2023-09-15 08:44] VITALS: BP 132/68; PULSE 103; RESP 18; TEMP 98.7; O2SAT 97
[2023-09-15] MEDS ORDERED: LOPE2CAP MT (09:08)
[2023-09-15 09:10] LABS: CHLORIDE 100 mEq/L (98-107); POTASSIUM 4.6 mEq/L (3.5-5.1); SODIUM 136 mEq/L (136-145)
[2023-09-15 09:11] LABS: CALCIUM 9.3 mg/dL (8.7-10.4); CARBON DIOXIDE 23 mEq/L (21-32)
[2023-09-15 09:12] LABS: BASOPHILS % 0.6 % (0.0-2.0); EOSINOPHILS % 0.4 % (0.0-5.0); HEMATOCRIT. 29.1 % (36.0-48.0); HEMOGLOBIN. 9.1 g/dL (12.0-16.0); LYMPHOCYTES % 14.6 % (20.0-50.0); MEAN CORPUSCULAR HEMOGLOBIN 27.7 pg (28.0-32.0); MEAN CORPUSCULAR HGB CONC 31.3 g/dL (31.0-37.0); MEAN CORPUSCULAR VOLUME 88.4 fL (81.0-99.0); MEAN PLATELET VOLUME 9.3 fl (7.4-10.4); MONOCYTES % 10.9 % (2.0-8.0); NEUTROPHILS % 73.5 % (40.0-76.0); PLATELET 160 x1000/uL (130-400); RED BLOOD CELL COUNT 3.29 mill/uL (4.2-5.4); RED CELL DISTRIBUTION WIDTH 22.4 % (11.6-14.6); WHITE BLOOD COUNT 5.9 x1000/uL (4.5-11.0)
[2023-09-15 09:16] LABS: GLUCOSE 127 mg/dL (70-105); UREA NITROGEN BLOOD 46 mg/dL (9-23)
[2023-09-15 09:18] LABS: ALANINE AMINOTRANSFERASE 12 IU/L (10-49); ALBUMIN 3.8 g/dL (3.2-4.8); ASPARTATE AMINOTRANSFERASE 20 IU/L (<34); BILIRUBIN DIRECT 0.3 mg/dL (<=3.0); BILIRUBIN TOTAL 0.4 mg/dL (0.1-1.0); PROTEIN TOTAL 6.5 g/dL (6.0-8.3)
[2023-09-15 09:23] LABS: ADD RBC MORPHOLOGY YES; DIFFERENTIAL COMMENT 1
[2023-09-15 09:46] LABS: CREATININE 11.7 mg/dL (0.6-1.0)
[2023-09-15 10:58] LABS: ANISOCYTOSIS 3+
[2023-09-15 16:24] LABS: PLATELET ESTIMATE NORMAL
== END 2023-09-15 10:49 | disposition home or self-care (01) ==
LOC: ER 08:36
DX: R19.7 Diarrhea, unspecified (principal); I12.0 Hypertensive chronic kidney disease with stage 5 chronic kidney disease or end stage renal disease; J44.9 Chronic obstructive pulmonary disease, unspecified; N18.6 End stage renal disease; Z99.2 Dependence on renal dialysis; Z79.899 Other long term (current) drug therapy
CPT/HCPCS: 36415; 80048; 80076; 85025; 99283